=== PATIENT | male | born 1930 | race Caucasian/White ===

== ENCOUNTER 2016-08-16 22:55 | Observation (INO) | payer MEDICARE, BC ==
[~2016-08-16] VITALS: Ht 177.8 cm; Wt 108.2 kg
[~2016-08-16 22:55] MED LIST: ALLEGRA180 MG PO; ASPIRIN 32325 MG/TAB PO; ASPIRIN 81M81 MG/TA2 PO; ASPIRIN E.C. 8181 MG PO; ASPIRIN E.C.325 MG PO; AVALIDE 12.5 MG1 TA1 PO; CALCIUM600 MG PO; CLOPIDOGREL; DILAUDID 4MG TAB4 MG PO; LASIX; LIPITOR80 MG PO; LISINOPRIL10 MG PO; METOPROLOL SUCC25 MG PO; METOPROLOL TART25 MG PO; MULTIPLE VITAMI1 CAP PO; NEURONTIN300 MG/CAP PO; NORCO 325 MG-51 TAB PO; PERCOCET 325 MG1 TA2 PO; SIMVASTATIN40 MG PO; SIMVASTATIN80 MG PO; ZOCOR40 MG PO; [UNRECOGNIZED DRUG - OTHER]
[2016-08-16] MEDS ORDERED: FLOMAX 0.40.4 MG/CAP PO (23:11)
[2016-08-16] MEDS ORDERED: ELIQUIS 2.5 PO (23:12)
[2016-08-16] MEDS ORDERED: LOPRESSOR100 MG PO (23:12)
[2016-08-16] MEDS ORDERED: CIPRO 500MG TA500 MG PO (23:12)
[2016-08-16] MEDS ORDERED: PROTONIX 40MG T40 MG PO (23:13)
[2016-08-16] MEDS ORDERED: PRAVACHOL 40MG40 MG PO (23:13)
[2016-08-16] MEDS ORDERED: IMDUR 30MG30 MG/TAB PO (23:14)
[2016-08-16] MEDS ORDERED: NORVASC 5MG5 MG/TAB PO (23:14)
[2016-08-16 23:21] LABS: BASO % 0.4 % (0.0-2.0); EOS # 0.2 (0.0-0.7); EOS % 2.4 % (0-4.0); GRAN # 5.7 (1.4-6.5); GRAN % 77.3 % (42.2-75.2); LYMPH # 0.7 (1.2-3.4); LYMPH % 9.9 % (20.0-51.0); MEAN CELL VOLUME 101 fl (80.0-100.0); MEAN CORPUSCULAR HGB CONC 32 g/dl (33.0-37.0); MEAN PLATELET VOLUME 10.6 fl (7.4-10.4); MONO # 0.7 (0.1-0.6); MONO % 9.6 % (1.7-9.3); PLATELET COUNT 148 K/mm3 (130-400); RED BLOOD COUNT 3.16 M/mm3 (4.20-5.60); WHITE BLOOD COUNT 7.4 K/mm3 (4.8-10.8)
[2016-08-16 23:22] LABS: HEMATOCRIT 31.8 % (42.0-52.0); HEMOGLOBIN 10.1 g/dl (13.5-18.0); MEAN CORPUSCULAR HEMOGLOBIN 32 pg (27.0-31.0)
[2016-08-16 23:23] LABS: INR 1.5 (0.8-3.0); PROTHROMBIN TIME 16.7 SECONDS (9.7-12.8)
[2016-08-16 23:25] LABS: PARTIAL THROMBOPLASTIN TIME 35.2 SECONDS (26.0-37.0)
[2016-08-16 23:28] LABS: ADJUSTED CALCIUM 9.3 mg/dL (8.4-10.2); BILIRUBIN,TOTAL 1.2 mg/dL (0.0-1.0); CALCIUM 9.3 mg/dL (8.4-10.2); CREATININE, serum 1.79 mg/dL (0.66-1.25); POTASSIUM 4.5 mmol/L (3.4-5.0); TOTAL PROTEIN 7.2 gm/dL (6.4-8.2)
[2016-08-16 23:39] LABS: TROPONIN-I 0.014 ng/mL (0.000-0.034)
[2016-08-17 02:10] LABS: PH 5 (5-8); SQUAMOUS EPITHELIAL None Seen /hpf; URINE APPEARANCE Clear; URINE BACTERIA None Seen /hpf; URINE BILIRUBIN Negative (NEGATIVE); URINE BLOOD Negative (NEGATIVE); URINE COLOR Yellow; URINE GLUCOSE Negative (NEGATIVE); URINE KETONE Negative (NEGATIVE); URINE UROBILINOGEN Negative (NEGATIVE); URINE WBC 0-2 /hpf
[2016-08-17 04:42] VITALS: BP 143/62; PULSE 67; TEMP 98.7
[2016-08-17 07:44] VITALS: BP 144/57; PULSE 71; TEMP 97.8
[2016-08-17 11:47] VITALS: BP 124/53; PULSE 62; TEMP 97.9
[2016-08-17 16:36] VITALS: BP 114/51; PULSE 67; TEMP 97.5
[2016-08-17 19:48] VITALS: BP 127/53; PULSE 57; TEMP 96.8
[2016-08-17 23:34] VITALS: BP 130/56; PULSE 63; TEMP 98
[2016-08-18 04:08] VITALS: BP 144/58; PULSE 62; TEMP 97.2
[2016-08-18 07:25] LABS: CREATININE, serum 1.74 mg/dL (0.66-1.25); POTASSIUM 3.9 mmol/L (3.4-5.0)
[2016-08-18 07:27] LABS: BASO % 0.2 % (0.0-2.0); EOS # 0.2 (0.0-0.7); EOS % 2.5 % (0-4.0); GRAN # 6.2 (1.4-6.5); GRAN % 77.1 % (42.2-75.2); LYMPH # 0.8 (1.2-3.4); LYMPH % 9.9 % (20.0-51.0); MEAN CELL VOLUME 102 fl (80.0-100.0); MEAN CORPUSCULAR HGB CONC 32 g/dl (33.0-37.0); MEAN PLATELET VOLUME 10.4 fl (7.4-10.4); MONO # 0.8 (0.1-0.6); MONO % 9.9 % (1.7-9.3); PLATELET COUNT 169 K/mm3 (130-400); RED BLOOD COUNT 3.22 M/mm3 (4.20-5.60); REDCELL DISTRIBUTION WIDTH-CV 13.9 % (11.5-14.5); WHITE BLOOD COUNT 8.1 K/mm3 (4.8-10.8)
[2016-08-18 07:30] LABS: HEMATOCRIT 32.7 % (42.0-52.0); HEMOGLOBIN 10.3 g/dl (13.5-18.0); MEAN CORPUSCULAR HEMOGLOBIN 32 pg (27.0-31.0)
[2016-08-18 07:41] VITALS: BP 132/48; PULSE 61; TEMP 97
[2016-08-18 12:14] VITALS: BP 126/56; PULSE 56; TEMP 97.3
[2016-08-18 17:45] VITALS: BP 119/48; PULSE 63; TEMP 97.1
[2016-08-18 19:36] VITALS: BP 121/48; PULSE 67; TEMP 98
[2016-08-18 23:36] VITALS: BP 101/40; PULSE 65; TEMP 98.4
[2016-08-19 03:40] VITALS: BP 112/52; PULSE 64; TEMP 97.9
[2016-08-19 08:11] VITALS: BP 127/54; PULSE 62; TEMP 97.4
[2016-08-19 08:16] LABS: CALCIUM 8.8 mg/dL (8.4-10.2); CREATININE, serum 1.69 mg/dL (0.66-1.25); POTASSIUM 3.6 mmol/L (3.4-5.0)
[2016-08-19] MEDS ORDERED: LASIX 20MG TABL20 MG PO (11:01)
[2016-08-19] MEDS ORDERED: MAG-OX 400400 MG/TAB PO (11:38)
[2016-08-19] MEDS ORDERED: KLOR-CON M2020 MEQ PO (11:38)
[2016-08-19] MEDS ORDERED: ZESTRIL2.5 MG PO (11:42)
[2016-08-19 12:40] VITALS: BP 112/56; PULSE 56; TEMP 98.1
== END 2016-08-19 14:47 | disposition home or self-care (01) ==
LOC: COL.ER 22:55 → MEDICAL 08-17 00:17
PROVIDERS: Emergency Medicine; Internal Medicine; Physician Assistant
DX: I50.23 Acute on chronic systolic (congestive) heart failure (principal); I25.10 Atherosclerotic heart disease of native coronary artery without angina pectoris; N18.9 Chronic kidney disease, unspecified; N17.9 Acute kidney failure, unspecified; I15.0 Renovascular hypertension; I34.0 Nonrheumatic mitral (valve) insufficiency; I35.8 Other nonrheumatic aortic valve disorders
CPT/HCPCS: 99222-AI; 99232-AI; 99239; G0378; G8978-GP; G8979-GP; G8987-GO; G8988-GO; J1940

== ENCOUNTER → 2017-08-23 | Outpatient (CLI) | payer MEDICARE, BC ==
[~2017-08-23] MED LIST changes: +CIPRO 500MG TA500 MG PO; +ELIQUIS 2.5 PO; +FLOMAX 0.40.4 MG/CAP PO; +IMDUR 30MG30 MG/TAB PO; +KLOR-CON M2020 MEQ PO; +LASIX 20MG TABL20 MG PO; +LOPRESSOR100 MG PO; +MAG-OX 400400 MG/TAB PO; +NORVASC 5MG5 MG/TAB PO; +PRAVACHOL 40MG40 MG PO; +PROTONIX 40MG T40 MG PO; +ZESTRIL2.5 MG PO
== END ==
LOC: COL.RAD 11:24
DX: M48.14 Ankylosing hyperostosis [Forestier], thoracic region (principal); Z95.1 Presence of aortocoronary bypass graft

== ENCOUNTER 2019-06-13 09:52 | Day surgery (SDC) | payer MEDICARE, BC ==
--- NOTE | 2019-06-12 13:36 | NUR ---
CALLED PT TO REVIEW PREPROCEDURE INFORMATION, LEFT MESSAGE FOR PT TO CALL BACK TO [phone] IF ABLE.
[2019-06-13] VITALS (13 sets, daily range): BP systolic 114–160; BP diastolic 64–82; PULSE 59–75; TEMP 98.2
[~2019-06-13] VITALS: Ht 177.8 cm; Wt 96.0 kg
[~2019-06-13 09:52] MED LIST changes: +LOPRESSOR 550 MG/TAB PO; -LOPRESSOR100 MG PO
[2019-06-13] MEDS ORDERED: NORVASC 5MG5 MG/TAB PO (10:14)
[2019-06-13] MEDS ORDERED: ELIQUIS 2.5 PO (10:15)
[2019-06-13] MEDS ORDERED: ASPIRIN E.C. 8181 MG PO (10:16)
[2019-06-13] MEDS ORDERED: LASIX 20MG TABL20 MG PO (10:17)
[2019-06-13] MEDS ORDERED: IMDUR 30MG30 MG/TAB PO (10:18)
[2019-06-13] MEDS ORDERED: ZESTRIL2.5 MG PO (10:19)
[2019-06-13] MEDS ORDERED: PRAVACHOL 40MG40 MG PO (10:24)
[2019-06-13 10:59] LABS: HEMATOCRIT 38.8 % (42.0-52.0); HEMOGLOBIN 12.4 g/dl (13.5-18.0); MEAN CELL VOLUME 97 fl (80.0-100.0); MEAN CORPUSCULAR HEMOGLOBIN 31 pg (27.0-31.0); MEAN CORPUSCULAR HGB CONC 32 g/dl (33.0-37.0); MEAN PLATELET VOLUME 9.3 fl (7.4-10.4); PLATELET COUNT 147 K/mm3 (130-400); REDCELL DISTRIBUTION WIDTH-CV 13.8 % (11.5-14.5)
[2019-06-13 11:14] LABS: CALCIUM 9.3 mg/dL (8.4-10.2); CREATININE, serum 1.69 (0.66-1.25); POTASSIUM 4.3 mmol/L (3.4-5.0)
[2019-06-13 11:45] LABS: INR 0.9 (0.8-3.0)
[2019-06-13 11:47] LABS: PARTIAL THROMBOPLASTIN TIME 27.5 SECONDS (26.0-37.0)
--- NOTE | 2019-06-13 11:57 | NUR ---
SEE MERGE DOCUMENTATION FOR MEDICATION ADMIN TIMES AND INTRA/POST PROCEDURE SEDATION ASSESSMENTS.
--- NOTE | 2019-06-13 13:15 | NUR ---
Pt back from [facility], daughter with pt. bs report received from River SOARES. Pt is awake and alert, p,w,d. cms intact to extremities. rt dp pulse is difficult to palpate although was able to palpate it upon return from [facility]. resp regular and unlabored, sr on monitor 60's. extremities warm, brush polisher brisk. rt groin site free of bleeding or hematoma. pt aware of poc for br x 4-6 hours. pt has call light. urinal in room available as pt did receive 40 mg IV lasix in [facility], and IV running at 200 cc/hr per River SOARES who received verbal order from Dr. Palmer. [facility]
--- NOTE | 2019-06-13 13:32 | NUR ---
Pt transferred to 10 at this time. VS monitors connect, VS's found WNL. Bedside handoff with FANY Ann. Pt A&Ox3, answers all questions appropriately. No s/sx of distress noted at this time. Right femoral site observed. Dressing dry and intact. No bleeding, oozing, bruising noted at this time. Site soft to palpation. No s/sx of impaired circulation noted. Education provided regarding flat time and movement restrictions. All questions answered at this time.
--- NOTE | 2019-06-13 16:36 | NUR ---
Pt's period of bedrest has been going well, pt has been able to use urinal to void with no problem, he has eaten a meal. rt groin site has remained free of bleeding and hematoma, circulation intact distal. I reviewed dc/fu instructions, site care and activity restrictions with pt and his daughter Aylin. We also reviewed emergent situations that would require evaluation. Daughter has agreed to stay with patient tonight.
--- NOTE | 2019-06-13 17:20 | NUR ---
Pt up and ambulatory with a steady gait to bathroom... dressed with no problem, rt groin site still looks good without bleeding or hematoma, cms intact distal. IV dc'd, pressure dressing applied. Pt did receive a total of 1 liter 1/2 NS during his recovery without any adverse effect. Pt is escorted to exit via wheelchair in the company of his daughter. He denies any questions or concerns at time of departure.
== END 2019-06-13 17:45 | disposition home or self-care (01) ==
LOC: COL.CAR 09:52
PROVIDERS: Internal Medicine Interventional Cardiology
DX: I25.10 Atherosclerotic heart disease of native coronary artery without angina pectoris (principal); I87.2 Venous insufficiency (chronic) (peripheral); N18.3 Chronic kidney disease, stage 3 (moderate); R94.39 Abnormal result of other cardiovascular function study; I10 Essential (primary) hypertension; E78.5 Hyperlipidemia, unspecified; I73.9 Peripheral vascular disease, unspecified; Z95.0 Presence of cardiac pacemaker; Z95.1 Presence of aortocoronary bypass graft; Z79.02 Long term (current) use of antithrombotics/antiplatelets; Z79.01 Long term (current) use of anticoagulants; Z87.891 Personal history of nicotine dependence; Z88.5 Allergy status to narcotic agent; Z88.8 Allergy status to other drugs, medicaments and biological substances
CPT/HCPCS: J0153; J1644; J1940; J2250; J3010

== ENCOUNTER 2019-10-07 04:10 | Inpatient (IN) | payer MEDICARE, BC ==
[~2019-10-07] VITALS: Ht 180.3 cm; Wt 91.8 kg
[2019-10-07 04:58] LABS: BASO # 0.1 (0.0-0.2); BASO % 0.5 % (0.0-2.0); EOS # 0.9 (0.0-0.7); GRAN # 8.5 (1.4-6.5); GRAN % 74.2 % (42.2-75.2); LYMPH # 0.8 (1.2-3.4); LYMPH % 7.3 % (20.0-51.0); MEAN CELL VOLUME 96 fl (80.0-100.0); MEAN CORPUSCULAR HGB CONC 31 g/dl (33.0-37.0); MEAN PLATELET VOLUME 10.2 fl (7.4-10.4); MONO # 1.1 (0.1-0.6); MONO % 9.6 % (1.7-9.3); PLATELET COUNT 122 K/mm3 (130-400); RED BLOOD COUNT 3.26 M/mm3 (4.20-5.60); REDCELL DISTRIBUTION WIDTH-CV 13.8 % (11.5-14.5)
[2019-10-07 05:05] LABS: INR 1.3 (0.8-3.0); PROTHROMBIN TIME 15.8 SECONDS (9.7-12.8)
[2019-10-07 05:06] LABS: HEMATOCRIT 31.3 % (42.0-52.0); HEMOGLOBIN 9.8 g/dl (13.5-18.0); MEAN CORPUSCULAR HEMOGLOBIN 30 pg (27.0-31.0)
[2019-10-07 05:09] LABS: BILIRUBIN,TOTAL 0.5 mg/dL (0.0-1.0); POTASSIUM 3.8 mmol/L (3.4-5.0); TOTAL PROTEIN 7.1 gm/dL (6.4-8.2)
[2019-10-07 05:21] LABS: TROPONIN-I 0.069 ng/mL (0.000-0.035)
[2019-10-07 08:32] VITALS: BP 128/63; PULSE 63; TEMP 97.3
--- NOTE | 2019-10-07 12:12 | NUR ---
stopped by but nothing needed at this time.
--- NOTE | 2019-10-07 12:35 | NUR ---
HEP GTT STARTED AT THIS TIME. HEP-XA LEVEL WAS DRAWN PRIOR TO STARTING THE HEPARIN INFUSION.
[2019-10-07 12:50] VITALS: BP 125/61; PULSE 64; TEMP 97.8
[2019-10-07 12:52] LABS: PARTIAL THROMBOPLASTIN TIME 28.2 SECONDS (26.0-37.0)
--- NOTE | 2019-10-07 14:00 | NUR ---
CRITICAL LAB VALUE REPORTED TO THIS NURSE, PER PROTOCOL IT SAID TO STOP HELPARIN IN 2HRS AND REDRAW HEP-XA, THEN ADD 3. THIS NURSE CALLED DR TAMEZ AND VARIFIED IF WE WHERE TO CONTINUE PER THE PROTOCOL DUE TO JUST STARTING THE HEPARIN GTT. DR TAMEZ STATED JUST TO FOLLOW PROTOCOL. THIS NURSE DISCUSSED THIS WITH CHARGE NURSE WHO STATED AT SINCE PT WAS ON THE ELIQUIS THAT WE MITE NEED TO KEEP THE HEP GTT RUNNING DUE TO THE PTT LEVEL. THIS NURSE CALLED PHARMACY TO TALK AND ASHLIE IN PHARMACY. SHE STATED TO KEEP HEP GTT RUNNING DUE TO THE PTT BEING LOW. THAT THE PTT WAS NOT THEARAPUTIC YET AND PROBABLY WOULDNT BE UNTIL TOMMORROW MORNING. THIS NURSE RESTARTED THE HEPARIN GTT. VARIFIED RESTART WITH ANOTHER RN.
[2019-10-07 15:52] VITALS: BP 125/61; PULSE 64; TEMP 97.8
[2019-10-07 17:00] VITALS: BP 134/59; PULSE 71; TEMP 98.3
[2019-10-07 19:45] VITALS: BP 118/54; PULSE 68; TEMP 98.1
--- NOTE | 2019-10-07 20:30 | NUR ---
Initial shift assessment done- denies any pain at this time- understands to call for assistance up to bathroom- IV NS at 75cc/hr, Has heparin drip at 8cc/hr- hepxa to be drawn at 2100. Tele on. No requests at this time.
--- NOTE | 2019-10-07 22:50 | NUR ---
Cindy SUAZO called with hepXA result of 1.3,, pt did get dose of Eliquis this morning- order to follow protocol and hold heparin drip for 2 hours and get PTT and hepXA at 0100.
[2019-10-07 23:15] VITALS: BP 135/59; PULSE 67; TEMP 98.7
[2019-10-08 01:43] LABS: PARTIAL THROMBOPLASTIN TIME 26.6 SECONDS (26.0-37.0)
--- NOTE | 2019-10-08 02:00 | NUR ---
Hepxa result came back at 0.96- will hold for 1 hour and restart heparin drip at 5.5cc/hr per protocol.
--- NOTE | 2019-10-08 03:00 | NUR ---
Heparin drip restarted at 5.5cc/hr per protocol- next hepXA at 0900
[2019-10-08 03:34] VITALS: BP 124/59; PULSE 69; TEMP 98.8
--- NOTE | 2019-10-08 05:43 | NUR ---
Quiet night- slept on and off,, Up to bathroom x3-needs standy assistance to help with IV pole. Denies any chest or back pain. Heparin drip at 5.5cc/hr
[2019-10-08 08:49] VITALS: BP 125/48; PULSE 73; TEMP 98.2
[2019-10-08 09:15] LABS: BASO # 0.1 (0.0-0.2); BASO % 0.6 % (0.0-2.0); EOS # 0.7 (0.0-0.7); EOS % 7.4 % (0-4.0); GRAN # 7.5 (1.4-6.5); GRAN % 75.4 % (42.2-75.2); HEMATOCRIT 28.2 % (42.0-52.0); HEMOGLOBIN 8.7 g/dl (13.5-18.0); LYMPH # 0.8 (1.2-3.4); LYMPH % 7.6 % (20.0-51.0); MEAN CELL VOLUME 97 fl (80.0-100.0); MEAN CORPUSCULAR HEMOGLOBIN 30 pg (27.0-31.0); MEAN CORPUSCULAR HGB CONC 31 g/dl (33.0-37.0); MEAN PLATELET VOLUME 10.1 fl (7.4-10.4); MONO # 0.8 (0.1-0.6); MONO % 8.5 % (1.7-9.3); PLATELET COUNT 113 K/mm3 (130-400); RED BLOOD COUNT 2.92 M/mm3 (4.20-5.60); REDCELL DISTRIBUTION WIDTH-CV 13.9 % (11.5-14.5)
[2019-10-08 09:24] LABS: CALCIUM 8.5 mg/dL (8.4-10.2); CREATININE, serum 1.64 (0.66-1.25); POTASSIUM 4.3 mmol/L (3.4-5.0)
--- NOTE | 2019-10-08 09:30 | NUR ---
PT HEP-XA CAME BACK 0.94, PER PROTOCOL THIS NURSE STOPPED HEP GTT FOR 60MINS THEN WILL DECREASE RATE TO 3.5ML/HR.
[2019-10-08 12:33] VITALS: BP 115/54; PULSE 68; TEMP 98.2
--- NOTE | 2019-10-08 13:25 | NUR ---
Patient lives at home alone in [place], [place] and plans to return home upon recovery. Patient is mostly indendent with daily living activities yet does have a walker to use for mobility assistance and also has railings in his shower/bathroom. Patient's primary care physician is Dr. Nguyen, his pharmacies are either [facility] (via mail) or [facility], and he does have advance directives for healthcare completed with his DPOA selected as his daughter Aylin Price ([phone]). No further needs at this time and director of social services will follow up as needed.
--- NOTE | 2019-10-08 16:00 | NUR ---
PT HEP-XA RECHECK WAS 0.6 THIS EVENING. REQUIRED NO CHANGE IN RATE, 3.5ML/HR RUNNING.
[2019-10-08 17:06] VITALS: BP 141/60; PULSE 69; TEMP 98.4
[2019-10-08 18:01] LABS: MEAN CELL VOLUME 96 fl (80.0-100.0); MEAN CORPUSCULAR HGB CONC 31 g/dl (33.0-37.0); MEAN PLATELET VOLUME 10.1 fl (7.4-10.4); PLATELET COUNT 109 K/mm3 (130-400); RED BLOOD COUNT 2.85 M/mm3 (4.20-5.60); REDCELL DISTRIBUTION WIDTH-CV 13.9 % (11.5-14.5)
[2019-10-08 18:02] LABS: HEMATOCRIT 27.4 % (42.0-52.0); HEMOGLOBIN 8.6 g/dl (13.5-18.0); MEAN CORPUSCULAR HEMOGLOBIN 30 pg (27.0-31.0)
--- NOTE | 2019-10-08 18:30 | NUR ---
Report received from Sulma SOARES at [facility]. PT is resting in bed peacefully at this time with heparin and normal saline infusing without complications and no s/s of distress noted. Call light within reach. Will continue to monitor.
--- NOTE | 2019-10-08 18:55 | NUR ---
PT HAD UNEVENTFUL DAY. HAS BEEN PLEASENT AND COOPERATIVE WITH CARES. DIDNT EAT MUCH SUPPER, DRANK ONE OF HIS PERSONAL ENSURE DRINKS FOR SUPPER. NO C/O PAIN THIS SHIFT.
[2019-10-08 19:18] VITALS: BP 134/53; PULSE 71; TEMP 98.4
--- NOTE | 2019-10-08 20:00 | NUR ---
PT resting in bed with eyes open and call light at his side. PT educated that at midnight he will be NPO meaning that he cannot eat or drink after midnight D/T procedure in the morning. PT states understanding. PT is noted to require assistance to come to a fully sitting position on the side of his bed and without this video games storywriter supporting PT's back he is noted to begin to fall backwards into the bed. PT denies pain or want/needs at this time. Will continue to monitor.
[2019-10-08 23:02] VITALS: BP 128/58; PULSE 65; TEMP 98.9
[2019-10-09] VITALS (7 sets, daily range): BP systolic 120–160; BP diastolic 46–76; PULSE 69–85; TEMP 97.6–98.9
--- NOTE | 2019-10-09 01:04 | NUR ---
PT resting in bed peacefully with eyes closed. When this aligner typewriter speaks PT's name and touches his arm PT is easily aroused. Education provided on lab draw from assistant laboratory director for Heparin level. PT states understanding and monitor tech obtains lab easily from PT's left arm. PT has call light within reach and shows no s/s of distress noted. Will continue to monitor.
[2019-10-09 08:10] LABS: BASO % 0.3 % (0.0-2.0); EOS # 0.5 (0.0-0.7); EOS % 4.3 % (0-4.0); GRAN # 9.6 (1.4-6.5); GRAN % 80.6 % (42.2-75.2); LYMPH # 0.8 (1.2-3.4); LYMPH % 6.5 % (20.0-51.0); MEAN CELL VOLUME 97 fl (80.0-100.0); MEAN CORPUSCULAR HGB CONC 31 g/dl (33.0-37.0); MEAN PLATELET VOLUME 10.2 fl (7.4-10.4); MONO % 7.9 % (1.7-9.3); PLATELET COUNT 106 K/mm3 (130-400); RED BLOOD COUNT 2.73 M/mm3 (4.20-5.60); REDCELL DISTRIBUTION WIDTH-CV 14.2 % (11.5-14.5)
[2019-10-09 08:11] LABS: HEMATOCRIT 26.5 % (42.0-52.0); HEMOGLOBIN 8.3 g/dl (13.5-18.0); MEAN CORPUSCULAR HEMOGLOBIN 30 pg (27.0-31.0)
[2019-10-09 08:20] LABS: CALCIUM 8.4 mg/dL (8.4-10.2); CREATININE, serum 1.55 (0.66-1.25); POTASSIUM 4.4 mmol/L (3.4-5.0)
--- NOTE | 2019-10-09 08:29 | NUR ---
HEPARIN XA DRAWN @ 0801 RESULTED @ 0.38. ACCORDING TO LOW DOSE HEPARIN PROTOCOL. NO CHANGE AND RECHECK IN 6 HRS. HEPARIN XA ORDERED FOR 10/09/19 @ 1400.
--- NOTE | 2019-10-09 10:00 | NUR ---
Fish Icer at bedside at this time speaking with patient and family members about the plan of care.
--- NOTE | 2019-10-09 10:05 | NUR ---
HEPARIN DRIP DISCONTINUED BY HOSPITALIST. INFUSION STOPPED AND DISCONNECTED. NS IV FLUIDS DC. INFUSION STOPPED. ORANGE JUICE PROVIDED PER REQUEST.
--- NOTE | 2019-10-09 11:08 | NUR ---
DR CHENG WITH GI NOTIFIED BY HOSPITALIST. TO CONTINUE CLEAR LIQUID DIET AT THIS TIME. PLAN OF CARE DISCUSSED WITH PATIENT AND FAMILY. AGREE TO GI CONSULT AT THIS TIME WITH POSSIBLE EGD IN AM 10/10/19. NO QUESTIONS OR CONCERNS @ END OF VIST.
--- NOTE | 2019-10-09 11:30 | NUR ---
This student nurse obtained vital signs. Patient reports no pain at this time with the use of his lidocaine patch. Primary RN notified.
[2019-10-09 16:22] LABS: HEMATOCRIT 25.9 % (42.0-52.0)
--- NOTE | 2019-10-09 18:30 | NUR ---
PT report received from Mamie SOARES at bedside. PT is noted to have a gallon of Bowel Prep fluids at bedside that he is slowly drinking D/T his colonoscopy in the AM. PT is A&O an denies pain or wants/needs at this time. No s/s of distress noted. Will continue to monitor.
--- NOTE | 2019-10-09 20:00 | NUR ---
PT is resting in bed with eyes open when this health science writer enters room and is noted to still be working on his Bowel Prep solution. PT reports that he has had to have a BM a few times since he has started drinking his bowel prep. PT remains A&Ox4 and denies pain although he states that his stomach is very active. No s/s of distress noted. Will continue to monitor.
--- NOTE | 2019-10-09 23:40 | NUR ---
This travel writer was notified that PT was C/O chest pain. Upon assessment of PT he is noted to have mid-sternal chest pain that he reports is similiar to what he experiences when he had his last "heart attack". Pt requires O2 at 5lpm to maintain SpO2 above 90%. PT given EKG and Labs per orders. Will continue to monitor.
[2019-10-10] VITALS (613 sets, daily range): BP systolic 95–146; BP diastolic 54–76; PULSE 55–86; TEMP 97–98.2; O2SAT 65–100
[2019-10-10] LABS: ARTERIAL BLD GAS O2 SATURATION 94.3 % (92-100); ARTERIAL BLOOD GAS BASE EXCESS -6.7 (-2-2); ARTERIAL BLOOD GAS HCO3 17.1 meq/L (22-26); ARTERIAL BLOOD GAS PCO2 27.9 mmHg (35-45); ARTERIAL BLOOD GAS PO2 71.6 mmHg (80-100); ARTERIAL BLOOD GAS pH 7.41 (7.35-7.45)
--- NOTE | 2019-10-10 00:09 | NUR ---
ONE NITRO SL GIVEN WITH BP NOTED DECREASED TO 144/61 FROM 160/67 PRIOR TO 1ST NITRO SL. PT REPORTS SOME RELIEF FROM CHEST PAIN BUT STILL PRESENT MID STERNAL
--- NOTE | 2019-10-10 00:14 | NUR ---
3 MINUTES AFTER 2ND NITRO SL GIVEN PT REPORTS CHEST PAIN RESOLVED.
--- NOTE | 2019-10-10 00:28 | NUR ---
Per Pt request: PT's daughter notified of pending transfer to ICU secondary to cardiac episode.
--- NOTE | 2019-10-10 03:57 | NUR ---
CALLED EDU DUFFY TO NOTIFY HER OF THE PATIENTS 0300 TROPONIN DRAW WHICH WAS ELEVATED AT 0.164, WILL CTM AND GET EKG THIS MORNING;
[2019-10-10 06:40] LABS: BASO % 0.3 % (0.0-2.0); EOS % 0.2 % (0-4.0); GRAN % 93.9 % (42.2-75.2); LYMPH # 0.5 (1.2-3.4); LYMPH % 3.8 % (20.0-51.0); MEAN CELL VOLUME 99 fl (80.0-100.0); MEAN CORPUSCULAR HGB CONC 30 g/dl (33.0-37.0); MEAN PLATELET VOLUME 10.9 fl (7.4-10.4); MONO # 0.1 (0.1-0.6); MONO % 0.9 % (1.7-9.3); PLATELET COUNT 121 K/mm3 (130-400); RED BLOOD COUNT 2.57 M/mm3 (4.20-5.60); REDCELL DISTRIBUTION WIDTH-CV 14.4 % (11.5-14.5)
[2019-10-10 06:41] LABS: HEMATOCRIT 25.4 % (42.0-52.0); HEMOGLOBIN 7.7 g/dl (13.5-18.0); MEAN CORPUSCULAR HEMOGLOBIN 30 pg (27.0-31.0)
[2019-10-10 06:42] LABS: IRON,SERUM 21 ug/dL (35-150)
[2019-10-10 06:49] LABS: ALBUMIN 3.7 gm/dL (3.5-5.0); BILIRUBIN,TOTAL 0.9 mg/dL (0.0-1.0); CALCIUM 8.6 mg/dL (8.4-10.2); CREATININE, serum 1.64 (0.66-1.25); POTASSIUM 4.4 mmol/L (3.4-5.0); TOTAL PROTEIN 6.7 gm/dL (6.4-8.2)
[2019-10-10 06:52] LABS: TOTAL IRON BINDING CAPACITY 342 ug/dL (261-462)
[2019-10-10 07:00] LABS: TROPONIN-I 0.25 ng/mL (0.000-0.035)
--- NOTE | 2019-10-10 07:15 | NUR ---
Bedside shift report received from FANY Sweeney at this time. Patient lying in bed with no complaints or concerns. Vital signs stable. FUll assessment completed. Call light within reach. Bed in lowest position. Side rails up x2.
[2019-10-10 15:46] LABS: HEMATOCRIT 32.1 % (42.0-52.0); HEMOGLOBIN 9.2 g/dl (13.5-18.0)
--- NOTE | 2019-10-10 16:40 | NUR ---
Patient has not peed for me today and states he doesnt feel like he has to pee. Bladder scan completed and showed 525cc of urine within bladder during 2 different scans. Patient states he will try and pee and if unable, will place a messina catheter per Dr. Kaur's order via telephone.
--- NOTE | 2019-10-10 16:58 | NUR ---
Patient has received 2L NS. 1L NS given by [facility] anesthesia prior to EGD/Colonoscopy. 1L given during/post EGD/Colonoscopy.
--- NOTE | 2019-10-10 17:45 | NUR ---
Patient educated on need for catheter placement due to him not voiding all day. Bladder scanner indicates patient has 525cc of urine in bladder currently. We attempt to urine in urinal first. Patient able to stand without complications and void 225cc of cloudy dark yellow urine into urinal. Refer to I&O documentation at this time.
--- NOTE | 2019-10-10 19:13 | NUR ---
Bedside shift report given to FANY Sweeney. Patient has no complaints or concerns at this time.
[2019-10-10 20:36] LABS: HEMATOCRIT 24.7 % (42.0-52.0); HEMOGLOBIN 7.8 g/dl (13.5-18.0)
[2019-10-11] VITALS (589 sets, daily range): BP systolic 102–136; BP diastolic 65–98; PULSE 67–84; TEMP 97.4–98; O2SAT 34–100
[2019-10-11 06:34] LABS: MEAN CELL VOLUME 96 fl (80.0-100.0); MEAN CORPUSCULAR HGB CONC 31 g/dl (33.0-37.0); MEAN PLATELET VOLUME 10.9 fl (7.4-10.4); PLATELET COUNT 95 K/mm3 (130-400); RED BLOOD COUNT 2.87 M/mm3 (4.20-5.60); REDCELL DISTRIBUTION WIDTH-CV 15.9 % (11.5-14.5)
[2019-10-11 06:44] LABS: HEMATOCRIT 27.6 % (42.0-52.0); HEMOGLOBIN 8.6 g/dl (13.5-18.0); MEAN CORPUSCULAR HEMOGLOBIN 30 pg (27.0-31.0)
[2019-10-11 06:47] LABS: CREATININE, serum 1.96 (0.66-1.25); MAGNESIUM 2.2 mg/dL (1.6-2.3); POTASSIUM 4.4 mmol/L (3.4-5.0)
[2019-10-11 07:03] LABS: BAND 17 % (0-10); HYPOCHROMIA 1+; LYMPHOCYTE 6 % (20.0-51.0); NEUTROPHILS 71 % (42.0-75.2)
[2019-10-11 07:04] LABS: PLATELET ESTIMATE DECREASED (NORMAL)
[2019-10-11 07:12] LABS: TROPONIN-I 0.566 ng/mL (0.000-0.035)
--- NOTE | 2019-10-11 14:22 | NUR ---
TOMMY rojas met with the patient and the patient's grandson to discuss post acute rehab. The patient was sleeping. TOMMY rojas presented [email or web address]'s list of post acute rehab to the grandson. TOMMY rojas also contacted the patient's daughter, Claire . Claire will look over the list then inform social media sr strategy manager. shared services and outsourcing manager will continue to monitor.
--- NOTE | 2019-10-11 15:45 | NUR ---
TELEPHONE LINES REPAIRER student met with Claire to discuss post acute rehab. The first choice is [facility] and second choice [facility]. Referral sent. Awaiting responses.
[2019-10-11 16:23] LABS: MEAN CELL VOLUME 95 fl (80.0-100.0); MEAN CORPUSCULAR HGB CONC 31 g/dl (33.0-37.0); MEAN PLATELET VOLUME 10.3 fl (7.4-10.4); PLATELET COUNT 82 K/mm3 (130-400); RED BLOOD COUNT 2.84 M/mm3 (4.20-5.60); REDCELL DISTRIBUTION WIDTH-CV 16.1 % (11.5-14.5)
[2019-10-11 16:26] LABS: HEMATOCRIT 26.9 % (42.0-52.0); HEMOGLOBIN 8.4 g/dl (13.5-18.0); MEAN CORPUSCULAR HEMOGLOBIN 30 pg (27.0-31.0)
[2019-10-11 16:49] LABS: BAND 5 % (0-10); EOSINOPHIL 3 % (0-4); LYMPHOCYTE 5 % (20.0-51.0); METAMYELOCYTE 2 % (0-0); NEUTROPHILS 86 % (42.0-75.2)
[2019-10-11 16:51] LABS: PLATELET ESTIMATE DECREASED (NORMAL)
[2019-10-11 16:53] LABS: ANISOCYTOSIS 1+; HYPOCHROMIA 2+
[2019-10-11 16:55] LABS: POLYCHROMASIA 1+
--- NOTE | 2019-10-11 19:15 | NUR ---
Received report from FANY Diop.
--- NOTE | 2019-10-11 22:00 | NUR ---
Informed during report that patient bladder scanned early in morning, showing > 300mL retained and that patient has voided small amounts of urine 2-3 times during shift. Patient bladder scanned again at this time, with > 579mL results. Cindy notified. Received orders to place messina catheter. Approx. 500mL of clear, tea-colored urine drained upon insertion. Will continue to monitor.
[2019-10-11 22:57] LABS: COLLECTION METHOD CLEAN CATCH
[2019-10-11 23:02] LABS: MUCOUS Present /lpf; PH 5 (5-8); SQUAMOUS EPITHELIAL None Seen /hpf; URINE APPEARANCE Clear; URINE BACTERIA None Seen /hpf; URINE BILIRUBIN Negative (NEGATIVE); URINE BLOOD Negative (NEGATIVE); URINE COLOR Yellow; URINE GLUCOSE Negative (NEGATIVE); URINE KETONE Negative (NEGATIVE); URINE LEUKOCYTE ESTERASE Negative (NEGATIVE); URINE NITRATE Negative (NEGATIVE); URINE PROTEIN(semi-quant) 1+ (NEGATIVE); URINE UROBILINOGEN Negative (NEGATIVE)
[2019-10-11 23:12] LABS: URINE PROTEIN:CREAT RATIO 0.3 (0.00-0.14)
[2019-10-12] VITALS (86 sets, daily range): BP systolic 114–139; BP diastolic 53–75; PULSE 63–76; TEMP 97.5–98; O2SAT 56–100
[2019-10-12 06:24] LABS: MEAN CELL VOLUME 97 fl (80.0-100.0); MEAN CORPUSCULAR HGB CONC 31 g/dl (33.0-37.0); MEAN PLATELET VOLUME 10.3 fl (7.4-10.4); PLATELET COUNT 81 K/mm3 (130-400); RED BLOOD COUNT 2.83 M/mm3 (4.20-5.60); REDCELL DISTRIBUTION WIDTH-CV 16.3 % (11.5-14.5)
[2019-10-12 06:31] LABS: HEMATOCRIT 27.3 % (42.0-52.0); HEMOGLOBIN 8.4 g/dl (13.5-18.0); MEAN CORPUSCULAR HEMOGLOBIN 30 pg (27.0-31.0)
[2019-10-12 06:33] LABS: ALBUMIN 3.3 gm/dL (3.5-5.0); BILIRUBIN,TOTAL 0.9 mg/dL (0.0-1.0); CALCIUM 8.3 mg/dL (8.4-10.2); CREATININE, serum 2.39 (0.66-1.25); POTASSIUM 4.1 mmol/L (3.4-5.0)
[2019-10-12 06:51] LABS: TROPONIN-I 0.626 ng/mL (0.000-0.035)
[2019-10-12 07:47] LABS: BAND 14 % (0-10); LYMPHOCYTE 8 % (20.0-51.0); METAMYELOCYTE 1 % (0-0); NEUTROPHILS 71 % (42.0-75.2)
[2019-10-12 07:48] LABS: ANISOCYTOSIS 2+; HYPOCHROMIA 2+; OVALOCYTES 1+; PLATELET ESTIMATE DECREASED (NORMAL)
[2019-10-12 07:53] LABS: PATHOLOGY DIFF REVIEW OK
--- NOTE | 2019-10-12 08:00 | NUR ---
Report given to FANY Saravia.
--- NOTE | 2019-10-12 15:35 | NUR ---
Lyla from [facility] reports they can accept the patient, faxed updates.
[2019-10-12 16:20] LABS: MEAN CELL VOLUME 96 fl (80.0-100.0); MEAN CORPUSCULAR HGB CONC 31 g/dl (33.0-37.0); MEAN PLATELET VOLUME 11.4 fl (7.4-10.4); PLATELET COUNT 68 K/mm3 (130-400); RED BLOOD COUNT 2.74 M/mm3 (4.20-5.60); REDCELL DISTRIBUTION WIDTH-CV 16.3 % (11.5-14.5)
[2019-10-12 16:24] LABS: HEMATOCRIT 26.3 % (42.0-52.0); HEMOGLOBIN 8.1 g/dl (13.5-18.0); MEAN CORPUSCULAR HEMOGLOBIN 30 pg (27.0-31.0)
[2019-10-12 16:51] LABS: ANISOCYTOSIS 2+; BAND 3 % (0-10); EOSINOPHIL 1 % (0-4); LYMPHOCYTE 4 % (20.0-51.0); METAMYELOCYTE 1 % (0-0); MYELOCYTE 1 % (0-0); NEUTROPHILS 84 % (42.0-75.2); NUCLEATED RED BLOOD CELL 2 (0-6)
[2019-10-12 16:52] LABS: HYPOCHROMIA 2+
[2019-10-12 16:53] LABS: PLATELET ESTIMATE DECREASED (NORMAL)
--- NOTE | 2019-10-12 19:20 | NUR ---
Bedside report recieved from FANY Saravia. Patient and family participate and deny questions at this time. INT IV x1 without complication. NC O2 in place at 3L. Julien catheter in place with bloody drainage noted. Stat lock device remains in place. Bed in low and locked position, call light within reach, rails up x3 and bed alarm armed. Care assumed.
[2019-10-13 03:24] VITALS: BP 143/71; PULSE 74; TEMP 97.6
[2019-10-13 05:09] LABS: MEAN CELL VOLUME 98 fl (80.0-100.0); MEAN CORPUSCULAR HGB CONC 31 g/dl (33.0-37.0); MEAN PLATELET VOLUME 10.8 fl (7.4-10.4); PLATELET COUNT 53 K/mm3 (130-400); RED BLOOD COUNT 2.64 M/mm3 (4.20-5.60); REDCELL DISTRIBUTION WIDTH-CV 16.2 % (11.5-14.5)
[2019-10-13 05:10] LABS: HEMATOCRIT 25.8 % (42.0-52.0); HEMOGLOBIN 7.9 g/dl (13.5-18.0); MEAN CORPUSCULAR HEMOGLOBIN 30 pg (27.0-31.0)
[2019-10-13 05:26] LABS: CALCIUM 8.3 mg/dL (8.4-10.2); CREATININE, serum 2.48 (0.66-1.25); MAGNESIUM 2.5 mg/dL (1.6-2.3); POTASSIUM 3.7 mmol/L (3.4-5.0)
[2019-10-13 05:47] LABS: BAND 4 % (0-10); EOSINOPHIL 4 % (0-4); LYMPHOCYTE 1 % (20.0-51.0); NEUTROPHILS 77 % (42.0-75.2); PLATELET ESTIMATE DECREASED (NORMAL)
[2019-10-13 05:48] LABS: ANISOCYTOSIS 1+; HYPOCHROMIA 1+
[2019-10-13 08:00] VITALS: BP 140/71; PULSE 79; TEMP 97.7
--- NOTE | 2019-10-13 08:45 | NUR ---
Physical therapy at bedside with pt.
--- NOTE | 2019-10-13 11:08 | NUR ---
TOMMY student attended clinical rounds with the team. A pallative care consult was ordered. TOMMY student faxed updates to Lyla at [facility].
--- NOTE | 2019-10-13 11:56 | NUR ---
Lara,Palliative care RN talking with pt's daughters. All daughters wish to have him comfort care at this time. Dr Kaur notified and will talk with pt's daughters. Daughters want him comfortable. No more vital signs and lab draws.
[2019-10-13 12:00] VITALS: BP 123/60; PULSE 65; TEMP 97.8
--- NOTE | 2019-10-13 15:14 | NUR ---
I met with three daughters and granddaughters this afternoon to discuss goals of care. Claire Price, CHAD-RUSS was present. Family did talk about changes that they have noted, what they have been told by physicians and that their father has been having long talks with them about what is going on. It was a agreed upon that they want their father to be on comfort care--no more needle stick, vital signs, blood, antibiotics, etc. We did talk about his choices of locations and hospice organizations that are available. He has been living at home until now. Family may wish to proceed with transfer later but do want comfort orders initiated now. They are talking about locations for transfer and will let us know after their brother arrives. Dr Hall was notified by primary nurse and will be down to talk with family and write orders.
--- NOTE | 2019-10-13 15:26 | NUR ---
Phone report given to Claudia surgical technician.
--- NOTE | 2019-10-13 15:28 | NUR ---
Pt transferred to Surgical floor via bed with FANY Mckeon.
--- NOTE | 2019-10-13 16:13 | NUR ---
Patient up to room 345. Family at bedside. Answers questions appropriately. Julien to dependent drainage with clear maria g urine present in bag. On contact precautions. Patient on 2l of oxygen via nasal cannula. Assessment complete.
--- NOTE | 2019-10-13 16:31 | NUR ---
Met with daughter Estephania and Granddaughter who then called other two sisters. They are requesting that we send information to [facility] [place] and request that a open claims representative come to the hospital to visit with them. I did call [facility] and left information with Lissette along with phone number of Estephania supplied for call to set up visit. Claire is not available at this time. Records were also sent to [facility]. This information was relayed to Guer[facility] aids social worker on Surgical.
--- NOTE | 2019-10-13 16:34 | NUR ---
Information regarding referral and actions taken also relayed to family.
--- NOTE | 2019-10-13 22:55 | NUR ---
Pt. resting quietly at this time. Pt. is A&O, assessment complete. PICC to rt. upper arm patent. Pt. denies pain or other needs, call light within reach.
--- NOTE | 2019-10-14 08:00 | NUR ---
Patient in bed resting. Alert and oriented x 3. Assessment complete. Denies pain at this time. Took a couple of bites of food with some encouragement. PICC line to PREMA without complications. Finger tips of right hand appear purple and cold, provided warm blanket. Denies further needs at this time.
--- NOTE | 2019-10-14 13:00 | NUR ---
Updated [facility]. She states they are all ready for patient to come. Would like to admit patient tomorrow 10/15/19 at 1100. [facility] set up for transport, family and Dr. Kaur made aware.
--- NOTE | 2019-10-14 16:50 | NUR ---
resting in bed with family at bedside, bedside shift report received from FANY Taylor
--- NOTE | 2019-10-14 17:01 | NUR ---
Patient has done well throughout the day. Family at bedside. Denies further needs at this time. Reported off to Sierra SOARES.
--- NOTE | 2019-10-14 17:38 | NUR ---
family at bedside and while MULTIMEDIA PRODUCTION ASSISTANT in to emmpty messina catheter patient experienced some "choking" after taking a sip of water, is cleaering his throat now and no coughing noted,
--- NOTE | 2019-10-14 19:04 | NUR ---
bedside shift report given to FANY Garrido
--- NOTE | 2019-10-14 20:00 | NUR ---
Pt. laying in bed resting quietly. Pt. arousable to touch stimuli. Shift assessment complete. PICC line to rt. upper arm. Pt. denies pain or other needs, call light within reach.
[2019-10-15] MEDS ORDERED: NITROSTAT0.4 MG/TAB SL (08:48)
[2019-10-15] MEDS ORDERED: Lidocaine 4% Patch TP (08:48)
[2019-10-15] MEDS ORDERED: IPRATROPIUM BROM3 M1 IH (08:48)
[2019-10-15] MEDS ORDERED: TYLENOL 325MG325 MG PO (08:49)
[2019-10-15] MEDS ORDERED: ZOFRAN 4MG T4 MG/TAB PO (08:50)
[2019-10-15] MEDS ORDERED: TRANSDERM-0.5 MG/21 TD (08:50)
[2019-10-15] MEDS ORDERED: DULCOLAX S10 MG/SUPP RC (08:51)
[2019-10-15] MEDS ORDERED: ARTIFICIAL TEAR15 M7 OP (08:51)
[2019-10-15] MEDS ORDERED: FLEET ENEM1 BOT/133 RC (08:51)
[2019-10-15] MEDS ORDERED: ROXANOL 20MG20 MG/ML SL (08:52)
[2019-10-15] MEDS ORDERED: ATIVAN 1MG T1 MG/TAB PO (08:52)
--- NOTE | 2019-10-15 09:30 | NUR ---
Patient alert and oriented, answers questions appropriately. See assessment. No c/o chest pain or pressure. Heart tones strong and uneven, pulses palpable. Julien catheter patent and draining clear maria g urine. No c/o pain or discomfort.
[2019-10-15 10:13] VITALS: BP 123/60; PULSE 65; TEMP 97.8
--- NOTE | 2019-10-15 11:06 | NUR ---
[facility]. Report called. Paperwork sent.
--- NOTE | 2019-10-16 13:21 | NUR ---
The patient transferred to the [facility] on 10/14.
== END 2019-10-15 11:00 | disposition hospice, home (50) | DRG 280 ==
LOC: COL.ER 04:10 → MEDICAL 05:50 → IMCU 12:31 → MEDICAL 12:32 → IMCU 10-10 00:35 → SURG 10-13 16:09
PROVIDERS: Emergency Medicine; Internal Medicine; Internal Medicine Gastroenterology; Internal Medicine Nephrology; Nurse Practitioner Family; Physician Assistant; Student in an Organized Health Care Education/Training Program; ADMIT Family Medicine
PROC: 0DB78ZX Excision of Stomach, Pylorus, Via Natural or Artificial Opening Endoscopic, Diagnostic (ICD-10-PCS; 2019-10-10)
PROC: 0DBN8ZZ Excision of Sigmoid Colon, Via Natural or Artificial Opening Endoscopic (ICD-10-PCS; 2019-10-10)
PROC: 0DBL8ZZ Excision of Transverse Colon, Via Natural or Artificial Opening Endoscopic (ICD-10-PCS; 2019-10-10)
PROC: 0DB98ZX Excision of Duodenum, Via Natural or Artificial Opening Endoscopic, Diagnostic (ICD-10-PCS; 2019-10-10 09:30)
PROC: 02HV33Z Insertion of Infusion Device into Superior Vena Cava, Percutaneous Approach (ICD-10-PCS; principal; 2019-10-12)
DX: I21.4 Non-ST elevation (NSTEMI) myocardial infarction (principal); J96.01 Acute respiratory failure with hypoxia; K29.71 Gastritis, unspecified, with bleeding; K29.81 Duodenitis with bleeding; I50.22 Chronic systolic (congestive) heart failure; I13.0 Hypertensive heart and chronic kidney disease with heart failure and stage 1 through stage 4 chronic kidney disease, or unspecified chronic kidney disease; N17.9 Acute kidney failure, unspecified; N13.8 Other obstructive and reflux uropathy; N18.4 Chronic kidney disease, stage 4 (severe); G93.40 Encephalopathy, unspecified; I25.709 Atherosclerosis of coronary artery bypass graft(s), unspecified, with unspecified angina pectoris; I44.7 Left bundle-branch block, unspecified; D50.0 Iron deficiency anemia secondary to blood loss (chronic); N40.1 Benign prostatic hyperplasia with lower urinary tract symptoms; R33.8 Other retention of urine; D69.6 Thrombocytopenia, unspecified; K44.9 Diaphragmatic hernia without obstruction or gangrene; D72.829 Elevated white blood cell count, unspecified; D64.9 Anemia, unspecified; E78.5 Hyperlipidemia, unspecified; Z79.82 Long term (current) use of aspirin; Z79.01 Long term (current) use of anticoagulants; Z85.46 Personal history of malignant neoplasm of prostate; Z87.891 Personal history of nicotine dependence; Z95.1 Presence of aortocoronary bypass graft; Z95.5 Presence of coronary angioplasty implant and graft; Z88.6 Allergy status to analgesic agent
CPT/HCPCS: 99222-AI; 99232-AI; 99233-AI; 99239; A4216; A9284; C1751; C9113; J0456; J0696; J1644; J1940; J2270; J2704; J2916; J2930; J7030; J7050; P9016